=== PATIENT | male | born 1980 | race Caucasian/White ===

== ENCOUNTER 2017-06-30 18:03 | Observation (INO) | payer MEDICARE ==
[~2017-06-30] VITALS: Ht 185.4 cm; Wt 100.9 kg
[2017-06-30 18:49] LABS: BASOPHILS 0.4 % (0-2); EOSINOPHILS 2.2 % (0-7); HEMATOCRIT 43.8 % (42.0-54.0); HEMOGLOBIN 15.7 g/dL (13.5-17.5); IMMATURE GRANULOCYTES 0.2 % (0-5); LYMPHOCYTES 33.4 % (15-50); MCH 29.7 pg (26.0-34.0); MCHC 35.8 g/dL (31.0-37.0); MCV 82.8 fL (80.0-100.0); MEAN PLATELET VOLUME 10.3 fL (7.4-10.4); MONOCYTES 8.8 % (2-11); PLATELET COUNT 261 10x3/uL (130-400); RBC 5.29 10x6/uL (4.20-6.10)
[2017-06-30 18:54] LABS: ALBUMIN 3.8 g/dL (3.4-5.0); ALKALINE PHOSPHATASE 97 U/L (46-116); ALT (SGPT) 57 U/L (10-68); BILIRUBIN - TOTAL 0.32 mg/dL (0.2-1.3); CALC OSMOLALITY 287 mosm/kg (275-300); CALCIUM 9.2 mg/dL (8.5-10.1); CARBON DIOXIDE 25.6 mmol/L (21.0-32.0); CHLORIDE - SERUM 106 mmol/L (98-107); CREATININE - SERUM 0.8 mg/dL (0.6-1.3); GLUCOSE 115 mg/dL (74-106); POTASSIUM - SERUM 3.3 mmol/L (3.5-5.1); PROTEIN - SERUM 7.4 g/dL (6.4-8.2); SODIUM 145 mmol/L (136-145); UREA NITROGEN 7 mg/dL (7-18); eGFR NON AFRICAN AMERICAN > 90 mL/min (90-120)
[2017-06-30 19:05] LABS: CHOL - HDL RATIO 7.2 ratio (2.3-4.9); CHOLESTEROL, TOTAL 208 mg/dL (0-200); CKMB 0.1 U/L (0.0-3.6); CREATINE KINASE 84 UL (21-232); HDL CHOLESTEROL 29 mg/dL (32-96); LDL CHOLESTEROL 112 mg/dL (0-100); LDL-HDL RATIO 3.9 ratio (1.5-3.5); TRIGLYCERIDE 339 mg/dL (30-200)
[2017-06-30 19:15] LABS: TROPONIN-I < 0.017 ng/mL (0.000-0.060)
[2017-06-30] MEDS ORDERED: TEGRETOL200 MG PO (20:47)
[2017-06-30] MEDS ORDERED: ZYRTEC10 MG PO (20:47)
[2017-06-30] MEDS ORDERED: THORAZINE10 MG PO (20:49)
[2017-06-30] MEDS ORDERED: ZANAFLEX2 M1 PO (20:49)
[2017-06-30] MEDS ORDERED: NEURONTIN600 MG PO (20:50)
[2017-06-30] MEDS ORDERED: CALAN SR240 MG PO ×2 (20:50→21:02)
[2017-06-30] MEDS ORDERED: HYDROXYZINE HCL50 MG PO (20:52)
[2017-06-30] MEDS ORDERED: OMEPRAZOLE20 M1 PO (20:52)
[2017-06-30] MEDS ORDERED: ZESTRIL20 MG PO (20:53)
[2017-06-30] MEDS ORDERED: PRAVACHOL40 MG PO (20:53)
[2017-06-30] MEDS ORDERED: LATUDA80 MG PO (20:53)
[2017-06-30 20:55] LABS: CREATINE KINASE 83 UL (21-232)
[2017-06-30] MEDS ORDERED: SYNJARDY (20:58)
[2017-06-30 20:59] LABS: TROPONIN-I < 0.017 ng/mL (0.000-0.060)
[2017-06-30 23:28] VITALS: BP 115/65; BMI 29.3
[2017-07-01] VITALS: BP 124/86
[2017-07-01 02:30] LABS: CREATINE KINASE 79 UL (21-232); TROPONIN-I < 0.017 ng/mL (0.000-0.060)
[2017-07-01 04:00] VITALS: BP 112/76
[2017-07-01 08:26] VITALS: BP 108/76
[2017-07-01 08:44] LABS: CKMB 0.2 U/L (0.0-3.6); CREATINE KINASE 73 UL (21-232); TROPONIN-I < 0.017 ng/mL (0.000-0.060)
[2017-07-01 10:52] VITALS: Ht 185.4 cm; Wt 100.9 kg
== END 2017-07-01 11:31 | disposition home or self-care (01) ==
LOC: D.ER 18:03 → D.M2 19:53 → OBSVTIME 19:53 → D.M2 07-01 11:31
PROVIDERS: Family Medicine
DX: R07.9 Chest pain, unspecified (principal); I10 Essential (primary) hypertension; E11.9 Type 2 diabetes mellitus without complications; E78.5 Hyperlipidemia, unspecified; K21.9 Gastro-esophageal reflux disease without esophagitis; F41.0 Panic disorder [episodic paroxysmal anxiety]; Z72.0 Tobacco use

== ENCOUNTER 2019-07-13 00:42 | Emergency (ER) | payer MEDICARE, MEDICAID ==
[~2019-07-13] VITALS: Ht 185.4 cm; Wt 99.5 kg
[~2019-07-13 00:42] MED LIST: CALAN SR240 MG PO; HYDROXYZINE HCL50 MG PO; LATUDA80 MG PO; NEURONTIN600 MG PO; OMEPRAZOLE20 M1 PO; PRAVACHOL40 MG PO; SYNJARDY; TEGRETOL200 MG PO; THORAZINE10 MG PO; ZANAFLEX2 M1 PO; ZESTRIL20 MG PO; ZYRTEC10 MG PO
[2019-07-13 00:49] VITALS: BP 140/94; Ht 185.4 cm; Wt 99.5 kg
[2019-07-13] MEDS ORDERED: VERELAN120 MG PO (01:01)
[2019-07-13 01:05] LABS: BILIRUBIN NEGATIVE (NEGATIVE); GLUCOSE NEGATIVE (NEGATIVE); KETONE NEGATIVE (NEGATIVE); NITRITE NEGATIVE (NEGATIVE); SPECIFIC GRAVITY 1.015 (1.005-1.020); UROBILINOGEN NORMAL (NORMAL)
[2019-07-13] MEDS ORDERED: VRAYLAR3 MG PO (01:05)
[2019-07-13] MEDS ORDERED: SYNJARDY (01:05)
[2019-07-13] MEDS ORDERED: OMEPRAZOLE20 M1 PO (01:05)
[2019-07-13] MEDS ORDERED: VISTARIL50 MG PO (01:06)
[2019-07-13] MEDS ORDERED: ZYRTEC10 MG PO (01:07)
[2019-07-13] MEDS ORDERED: CYMBALTA60 MG PO (01:07)
[2019-07-13] MEDS ORDERED: PROPRANOLOL HCL20 MG PO (01:08)
[2019-07-13] MEDS ORDERED: LISINOPRIL20 MG PO (01:08)
[2019-07-13 01:09] LABS: BASOPHILS 0.5 % (0-2); EOSINOPHILS 2.7 % (0-7); HEMATOCRIT 43.3 % (42.0-54.0); HEMOGLOBIN 14.5 g/dL (13.5-17.5); IMMATURE GRANULOCYTES 0.1 % (0-5); LYMPHOCYTES 48.2 % (15-50); MCH 28.5 pg (26.0-34.0); MCHC 33.5 g/dL (31.0-37.0); MCV 85.2 fL (80.0-100.0); MEAN PLATELET VOLUME 10.1 fL (7.4-10.4); MONOCYTES 6.6 % (2-11); NEUTROPHILS 41.9 % (40-80); PLATELET COUNT 265 10x3/uL (130-400); RBC 5.08 10x6/uL (4.20-6.10); RDW 13.5 % (11.5-14.5); WBC 8.5 10x3/uL (4.8-10.8)
[2019-07-13 01:12] LABS: UDS - AMPHET NEGATIVE QUAL (NEGATIVE); UDS - BARB NEGATIVE QUAL (NEGATIVE); UDS - BENZO NEGATIVE QUAL (NEGATIVE); UDS - COCAINE NEGATIVE QUAL (NEGATIVE); UDS - OPIATE NEGATIVE QUAL (NEGATIVE); UDS - PCP NEGATIVE QUAL (NEGATIVE); UDS - THC POSITIVE QUAL (NEGATIVE)
[2019-07-13 01:16] LABS: CALC OSMOLALITY 285 mosm/kg (275-300); CALCIUM 9.2 mg/dL (8.5-10.1); CARBON DIOXIDE 29.7 mmol/L (21.0-32.0); CHLORIDE - SERUM 106 mmol/L (98-107); CREATININE - SERUM 0.7 mg/dL (0.6-1.3); GLUCOSE 119 mg/dL (74-106); POTASSIUM - SERUM 3.5 mmol/L (3.5-5.1); SODIUM 144 mmol/L (136-145); UREA NITROGEN 8 mg/dL (7-18); eGFR NON AFRICAN AMERICAN > 90 mL/min (90-120)
[2019-07-13 01:23] LABS: ALBUMIN 3.9 g/dL (3.4-5.0); ALKALINE PHOSPHATASE 89 U/L (30-120); ALT (SGPT) 39 U/L (10-68); BILIRUBIN - TOTAL 0.44 mg/dL (0.2-1.3); MAGNESIUM - SERUM 2.3 mg/dL (1.8-2.4); PROTEIN - SERUM 7.1 g/dL (6.4-8.2)
--- NOTE | 2019-07-13 01:45 | NUR ---
DR. MONTELONGO NOTIFIED AND SITTER ORDERED. SITTER AT BEDSIDE. NOTIFIED CHARGE NURSE AND ATTENDING IN REGARDS TO ASSESSMENT FINDINGS. RESOURCES GIVEN TO PT AND SAFETY PLAN INITIATED.
== END 2019-07-13 04:23 ==
LOC: D.ER 00:42
PROVIDERS: Emergency Medicine
DX: Z91.5 Personal history of self-harm (principal); F60.3 Borderline personality disorder; R45.851 Suicidal ideations; E11.9 Type 2 diabetes mellitus without complications; I10 Essential (primary) hypertension; E78.5 Hyperlipidemia, unspecified